=== PATIENT | male | born 1995 | race Caucasian/White ===

== ENCOUNTER → 2023-12-01 06:32 | Day surgery (SDC) | payer OTHER, SELFPAY ==
[2023-12-01 09:03] LABS: Glucose - Point of Care 87 mg/dl (70-99)
== END ==
LOC: GI 06:32
PROVIDERS: ATTENDING PHYSICIAN Surgery
DX: K62.5 Hemorrhage of anus and rectum (principal); K64.8 Other hemorrhoids; K64.4 Residual hemorrhoidal skin tags; K63.5 Polyp of colon; Q43.8 Other specified congenital malformations of intestine
CPT/HCPCS: 45378; 88305; 82962